=== PATIENT | female | born 1940 | race Caucasian/White ===

== ENCOUNTER → 2020-10-22 14:51 | Outpatient (CLI) | payer MEDICARE, SELFPAY ==
--- NOTE | 2020-10-22 14:59 | DI.ECHO.S_ITS ---
[facility] +---------+ : : [address] : [place] : : : : [id number] : : : : Phone: [phone]---------+ Echocardiogram Report + + :Name: SANAZ MARTINS Study Date: 10/22/2020 Height: 69 in : :[facility] ReadingLocation: Weight: 124 lb: : Gender: Female BSA: 1.7 m2 : :: 1940 Age: 80 yrs BP: 89/56 mmHg: :Reason For Study: Murmur : :Ordering Physician: Faye : :Briana Jenkins Performed By: Kostas Hicks : :Referring: FAYE JENKINS : + + Interpretation Summary 1) Normal left ventricular size, wall motion, and systolic function (EF 60- 65%). 2) Normal right ventricular size and function. 3) There is mild to moderate calcific mitral stenosis (mean gradient 6mmHg). 4) There appears to be incidental finding of esophageal hernia noted. 5) No prior Echo available for comparison. Procedure: A two-dimensional transthoracic echocardiogram with color flow and Doppler was performed. The study quality was technically adequate. There is no prior echocardiogram noted for this patient. The patient was in sinus rhythm with heart rates between 59-71 bpm during the exam. Left Ventricle: The left ventricle is normal in size. There is mild concentric left ventricular hypertrophy. Left ventricular systolic function is normal. The ejection fraction is estimated to be 60-65%. There are no focal wall motion abnormalities. Diastolic function could not be accurately assessed due to confounding valvular disease. Right Ventricle: The right ventricle is normal in size and function. Atria: The left atrium is moderately dilated. Right atrial size is normal. There is no Doppler evidence for an interatrial shunt. Mitral Valve: There is moderate mitral annular calcification. There is mild to moderate mitral stenosis. The mitral valve mean gradient is 6 mmHg. MV P1/2t 147 msec, MVA (VTI) 1.3 cm2. There is mild mitral regurgitation. Aortic Valve: The aortic valve is trileaflet. The aortic valve opens well. There is no aortic valve stenosis. No aortic regurgitation is present. Tricuspid Valve: The tricuspid valve is normal in structure and function. There is mild tricuspid regurgitation. The right ventricular systolic pressure is estimated to be at least 32 mmHg based on an estimated right atrial pressure of 3 mm Hg. Pulmonic Valve: The pulmonic valve is normal in structure and function. There is a trace or physiologic amount of pulmonic regurgitation. Great Vessels: The aortic root is normal size. The ascending aorta is at the upper limits of normal in size. The IVC is of normal diameter and collapses greater than 50% with a sniff. This suggests a low right atrial pressure of 3 mm Hg. Pericardium/ Pleura There is no pericardial effusion. MMode/2D Measurements & Calculations LVIDd: 4.2 cm LVOT diam: 1.9 cm LVIDs: 2.8 cm Ao root diam: 3.1 cm FS: 33.7 % asc Aorta Diam: 3.6 cm IVSd: 1.3 cm LVPWd: 1.2 cm LV hanna. diameter/BSA (cm/m^2): 2.5 LV sys. diameter/BSA (cm/m^2): 1.6 LA A2 area: 21.0 cm2 RA long axis: 4.9 cm LA A4 area: 21.7 cm2 RA area: 15.8 cm2 LA length (vol): 5.6 cm RA vol: 43.3 ml LA vol: 68.9 ml RA : 25.7 ml/m2 LA vol index: 40.9 ml/m2 TAPSE: 2.4 cm Doppler Measurements & Calculations Ao V2 max: 115.5 cm/sec LVOT Max Deandre: 115.1 cm/sec Ao V2 mean: 87.2 cm/sec LV V1 max P.3 mmHg Ao max P.3 mmHg LV V1 VTI: 27.9 cm Ao mean P.3 mmHg GRAHAM(I,D): 2.8 cm2 Ao V2 VTI: 28.7 cm GRAHAM(V,D): 2.9 cm2 sev ratio: 0.97 GRAHAM indexed to BSA (cm^2/m^2): 1.7 MV E max deandre: 156.3 cm/sec TR max deandre: 266.8 cm/sec MV A max deandre: 153.6 cm/sec TR max P.5 mmHg MV E/A: 1.0 PA V2 max: 78.6 cm/sec Med Peak E' Deandre: 3.4 cm/sec PA V2 mean: 58.0 cm/sec E/E' med: 45.6 PA mean P.5 mmHg Lat Peak E' Deandre: 4.3 cm/sec PA pr(Accel): 39.6 mmHg E/E' lat: 36.0 E/e' average: 40.8 MV dec time: 0.35 sec MVA(VTI): 1.3 cm2 MV V2 mean: 117.5 cm/sec SV(LVOT): 81.0 ml MV mean P.9 mmHg MV V2 VTI: 60.8 cm MV P1/2t-pr_phl: 146.5 msec Reading Physician:12:23 PM
== END ==
PROVIDERS: Referring Provider Internal Medicine Cardiovascular Disease; Visit Provider Internal Medicine Cardiovascular Disease
DX: R01.1 Cardiac murmur, unspecified (principal)
CPT/HCPCS: 93306